=== PATIENT | male | born 1965 | race Caucasian/White ===

== ENCOUNTER → 2023-02-13 | Outpatient (CLI) | payer BC ==
[2023-02-13 20:01] LABS: HCT 45.3 % (39.6-50.0); HGB 15.2 g/dL (13.0-17.0); MCH 31.9 pg (27.0-32.0); MCHC 33.6 g/dL (32.0-37.0); MCV 95.2 FL (80.0-97.0); Mean Platelet Volume 9.5 FL (9.5-12.2); NRBC Per 100 WBC 0 X 10*3/uL (0.00-0.01); Platelet Count 362 X 10*3/uL (140-440); RBC 4.76 X 10*6/uL (4.40-5.60); RDW 13.4 % (11.5-14.5); WBC 6.64 X 10*3/uL (4.50-10.00)
[2023-02-14 01:57] LABS: ALT 28 U/L (10-49); AST 19 U/L (14-35); Albumin 4.5 g/dL (3.8-4.9); Albumin/Globulin Ratio 1.73 Ratio (1.60-3.17); Alkaline Phosphatase 72 U/L (41-126); BUN/Creat Ratio 23.62 Ratio (12.00-20.00); Blood Urea Nitrogen 18.9 mg/dL (9.0-27.0); Calcium 10.2 mg/dL (8.7-10.3); Carbon Dioxide 25.9 mmol/L (21.6-31.8); Chloride 104 mmol/L (96-109); Globulin 2.6 g/dL (1.6-3.3); Glucose 94 mg/dL (70-110); Sodium 140 mmol/L (135-145); Total Bilirubin 0.5 mg/dL (0.3-1.2); Total Protein 7.1 g/dL (6.2-8.2)
== END | disposition home or self-care (01) ==
LOC: LABWHC1 13:54
PROVIDERS: ATTEND Surgery Plastic and Reconstructive Surgery
DX: Z01.89 Encounter for other specified special examinations (principal)
CPT/HCPCS: 36415; 80053; 85027; 93005

== ENCOUNTER 2023-03-28 08:16 | Day surgery (SDC) | payer BC ==
[2023-03-27 11:14] VITALS: BMI 31.0
[~2023-03-28 08:16] MED LIST: ACETAMINOPHEN TAB 500 MG TAB PO PRN; DEXAMETHASONE SOD PHOSPHATE 4 MG/ML 1 ML VIAL IV ONE; HEPARIN SODIUM,PORCINE 5,000 UNIT/ML 1 ML VIAL SQ PRN; HYDROmorphone 0.5 MG/0.5 ML SYRINGE IVP PRN; LACTATED RINGERS 1,000 ML IV SCH; LIDOCAINE 1% (10MG/ML) FOR IV START INTRADERMA PRN; MELOXICAM 7.5 MG TAB PO PRN; ONDANSETRON 4 MG/2 ML VIAL IVP PRN; SCOPOLAMINE 1 MG/72 HR PATCH TRANSDERM ONE; droPERidol 5 MG/2 ML VIAL IVP ONE
[2023-03-28] MEDS ORDERED: TAMSULOSIN 0.4 MG CAP.ER.24H PO STA (08:21)
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
[2023-03-28] MEDS ORDERED: MIDAZOLAM 2 MG/2 ML VIAL IVP ONE (09:22)
--- NOTE | 2023-03-28 09:38 | P.ANPRN ---
Procedure Note - Anesthesia - Nerve Block Performed Bilateral Erector Spinae Single Time Out Performed: Yes Date of Procedure: 03/28/23 Procedure Start Time: Procedure Stop Time: Location of Patient: PreOp Indication: Acute Post-Operative Pain, Requested by Surgeon Sedation Type: Sedate with meaningful contact maintained Preparation: Sterile Prep, Sterile Dressing Position: Prone Catheter: None Needle Types: Facet Needle Gauge: 20 Ultrasound used to visualize needle placement: Yes Ultrasound used to observe medication spread: Yes Injectate: Other (see comment) (Ropivacaine 0.25% + decadron 2 mg 30 ml per side) Blood Aspirated: No Pain Paresthesia on Injection Noted: No Resistance on Injection: Normal Image Stored and Saved: Yes Events: Uneventful and Well Tolerated
[2023-03-28 09:41] LABS: Basophils # (A) 0.1 k/uL (0-0.2); Basophils % (A) 1 %; Eosinophils # (A) 0.2 k/uL (0-0.7); Eosinophils % (A) 2 %; HCT 45.7 % (39.0-53.0); HGB 15.7 gm/dL (13.0-17.5); Lymphocytes # (A) 2.2 k/uL (1.0-4.8); Lymphocytes % (A) 22 %; MCH 33.1 pg (25.0-35.0); MCHC 34.5 g/dL (31.0-37.0); MCV 95.8 fL (80.0-100.0); Mean Platelet Volume 7.3; Monocytes # (A) 0.5 k/uL (0-1.0); Monocytes % (A) 5 %; Neutrophils # (A) 6.9 k/uL (1.3-7.7); Neutrophils % (A) 69 %; Platelet Count 362 k/uL (150-450); RBC 4.77 m/uL (4.30-5.90); RDW 12.9 % (11.5-15.5); WBC 9.9 k/uL (3.8-10.6)
[2023-03-28] MEDS ORDERED: SODIUM CHLORIDE 0.9% (PF) 10 ML VIAL ONE (10:03)
[2023-03-28] MEDS ORDERED: ROPIVACAINE 5 MG/ML 30 ML VIAL ONE (10:03)
[2023-03-28] MEDS ORDERED: DEXAMETHASONE SOD PHOSPHATE 4 MG/ML 1 ML VIAL ONE (10:03)
[2023-03-28] MEDS ORDERED: LIDOCAINE 1% INJ 10MG/ML (20 ML MDV) ONE (10:03)
[2023-03-28] MEDS ORDERED: MIDAZOLAM 2 MG/2 ML VIAL ONE (10:03)
[2023-03-28] MEDS ORDERED: PHENYLEPHRINE 10 MG/ML VIAL ONE (10:03)
[2023-03-28] MEDS ORDERED: PROPOFOL 10 MG/ML 20 ML VIAL IV ONE (10:03)
[2023-03-28] MEDS ORDERED: SUGAMMADEX SODIUM 200 MG/2 ML SDV IV ONE (10:03)
[2023-03-28] MEDS ORDERED: fentaNYL (PF) 50 MCG/ML 2 ML AMP ONE (10:03)
[2023-03-28] MEDS ORDERED: SUCCINYLCHOLINE CHLORIDE 200 MG/10 ML VIAL IV ONE (10:03)
[2023-03-28] MEDS ORDERED: ROCURONIUM 10 MG/ML (5 ML VIAL) IV ONE (10:03)
[2023-03-28] MEDS ORDERED: LIDOCAINE 0.5%-EPI 1:200,000 50 ML VIAL SQ ONE (10:08)
[2023-03-28] MEDS ORDERED: LACTATED RINGERS 1,000 ML IV ONE ×2 (11:12→13:37)
--- NOTE | 2023-03-28 12:27 | P.OP ---
Date of Procedure: 03/28/23 Description of Procedure: SURGEON: MINNA LOZA MD PREOPERATIVE DIAGNOSES: 1. Initial epigastric ventral hernia with incarceration 2. Initial incarcerated left inguinal hernia 3. Obesity due to excess calories, BMI 31.2 4. History of paralyzed diaphragm POSTOPERATIVE DIAGNOSES: 1. Initial epigastric ventral hernia with incarceration, 3 cm 2. Initial incarcerated left inguinal hernia, 3 cm 3. Obesity due to excess calories, BMI 31.2 4. History of paralyzed diaphragm 5. Left inguinal lipoma, 6 x 3 cm OPERATION: 1. Robotic-assisted da Sergey Xi laparoscopic repair of initial incarcerated umbilical ventral hernia with mesh, ventralight ST mesh 11.4 cm 2. Robotic-assisted da Sergey Xi laparoscopic repair of initial incarcerated left inguinal hernia, ventralight ST mesh 11.4 cm 3. Excision of left inguinal lipoma, subfascial, 6 x 3 cm Anesthesia: GETA, regional, local Estimated Blood Loss (ml): 5 Pathology: 1. Incarcerated umbilical hernia defect 2. Incarcerated left inguinal lipoma COMPLICATIONS: None. Operative Findings: 1. Incarcerated indirect left inguinal lipoma involving sigmoid colon, Nyhus II 2. Umbilical hernia defect 3 x 3 cm 3. Fascia repaired using #1 V-lock suture 4. Subfascial left inguinal lipoma, 6 x 3 cm INDICATIONS: The patient is a 57-year-old male who presents with multiple abdominal wall hernias. Surgical intervention with laparoscopic versus robotic and open techniques were reviewed. Placement of mesh was also reviewed. Benefits and risks were thoroughly described. Informed consent was obtained. DESCRIPTION OF PROCEDURE: The patient was brought into the operating room and laid in supine position. After general induction, the abdomen had been prepped and draped in standard sterile fashion. Ioban draping was also placed. Prior to incision, a timeout protocol was confirmed with surgical team regarding the patient's name including procedures to be performed. The robot was primed prior to the procedure. A field block using local anesthetic was placed along hernia site including the proposed port sites. Initial incision was made with an #11 blade along the left upper quadrant. A 0 degree 5 mm laparoscopic trocar entry was performed and insufflated. Three 8 mm ports were placed along the left lateral abdominal wall under direct localization after exchanging the 5-mm for an 8 mm port. Placements of the ports were 15 cm from the target anatomy and 10 cm apart. An accessory 12 mm port was placed at the left lateral quadrant for exchange of mesh including sutures. The [employer] Xi robot was previously primed, prepped and draped then docked from the right side of the patient onto the left side of the patient. I then sat at the robot [employer] console where working arms of the robot including Bovie cautery connected to robotic scissors, needle route sales delivery driver, and graspers placed by the cafe assistant. Incarcerated omental contents were found along the umbilicus. The sigmoid colon and epiploica were incarcerated along the left inguinal canal. The defects were reduced with preperitoneal fat. Umbilical hernia defect 3 x 3 cm. The incarcerated contents were reduced as the peritoneal fat was cleaned from the abdominal wall. Next, hemostasis was checked with cautery. The hernia defects were oversewn using #1 nonabsorbable V-lock suture with fascial imbrication x 2. Next, ventralight ST mesh 11.4 cm was placed with the rough side towards the abdominal wall as to cover the umbilical defect. 2-0 VLOC 9 inch absorbable sutures were used to fixate the mesh. The left indirect inguinal hernia with incarcerated epiploic of the sigmoid colon was found. The left inguinal hernia defect was probed where large 6 x 3 centimeters subfascial lipoma was excised after reduction of sigmoid colon. The contents was evaginated whereby the peritoneum was scored using Endo scissors with cautery. Once completely reduced into the abdominal cavity, the peritoneal sac of the hernia was stripped. The sac with subfascial lipoma was resected and then passed off for further pathological analysis. The size of the hernia defect was 3 cm with intraoperative films obtained. An inguinal lipoma, subfascial 6 x 3 cm was resected. Using a nonabsorbable 2-0 VLOC, the peritoneal defect of the left inguinal hernia site was closed using a pursestring suture. The defect was found to be completely closed with complete reduction of the left direct inguinal hernia. As an onlay, an 11.[address] mesh by Crew was cut in half and entered into the abdominal cavity via the 8 mm trocar. The mesh was tacked to the pelvis using nonabsorbable 2-0 VLOC sutures. A final endoscopic imaging was obtained. All instruments and pneumoperitoneum were evacuated from the abdominal cavity. The da Sergey Xi robot was undocked from the patient. I re-scrubbed into the case for closure of incisions. The fascia of the 12-mm port was probed and an closed using Onur Webb and 0 Vicryl. The incisions were reapproximated using 4-0 Monocryl in an interrupted subcuticular fashion. Liquid glue was applied to the skin after cleansing the skin with normal saline and dilute hydrogen peroxide. An abdominal binder was placed. An umbilical dressing was placed prior. At the end of the procedure, needle, sponge, and instrument count had been verified correct by director medical surgical. The patient was taken to the postanesthesia care unit in stable condition. Plan - Discharge Summary Discharge Rx Participant: Yes New Discharge Prescriptions: New Acetaminophen Tab [Tylenol Tab] 1,000 mg PO Q6HR PRN #30 tablet PRN Reason: Pain Cyclobenzaprine [Flexeril] 10 mg PO TID #30 tab Ibuprofen [Motrin] 600 mg PO Q8HR PRN #30 tab PRN Reason: Pain Continue Multivitamins, Thera [Multivitamin (formulary)] 1 tab PO DAILY Calcium Carb/Mag Ox/Zinc Sulf [Ghn-Agg-Ssyc 334-134-5 mg Tab] 1 each PO DAILY Cholecalciferol [Vitamin D3 (25 Mcg = 1000 Iu)] 25 mcg PO DAILY Ascorbic Acid [Vitamin C] 500 mg PO DAILY Discharge Medication List Ascorbic Acid [Vitamin C] 500 mg PO DAILY 03/27/23 [History] Calcium Carb/Mag Ox/Zinc Sulf [Mmq-Hqi-Crwf 334-134-5 mg Tab] 1 each PO DAILY 03/27/23 [History] Cholecalciferol [Vitamin D3 (25 Mcg = 1000 Iu)] 25 mcg PO DAILY 03/27/23 [History] Multivitamins, Thera [Multivitamin (formulary)] 1 tab PO DAILY 03/27/23 [History] Acetaminophen Tab [Tylenol Tab] 1,000 mg PO Q6HR PRN #30 tablet 03/28/23 [Rx] Cyclobenzaprine [Flexeril] 10 mg PO TID #30 tab 03/28/23 [Rx] Ibuprofen [Motrin] 600 mg PO Q8HR PRN #30 tab 03/28/23 [Rx] Follow up Appointment(s)/Referral(s): Minna Loza MD [STAFF PHYSICIAN] - 04/02/23 1:45 pm Patient Instructions/Handouts: Laparoscopic Herniorrhaphy (IP), Abdominal Binder (DC), Inguinal Hernia Repair (GEN) Activity/Diet/Wound Care/Special Instructions: DO NOT REMOVE UMBILICAL DRESSING. Using antibacterial soap. No lifting over 4 pounds 4 weeks, Apr 28August shower. No bathtub soaks for 2 weeks, Apr 11 Wear abdominal binder daily for comfort except for showering. Use ice along incisions for today to prevent swelling. Take tylenol, aleve/ibuprofen, simethicone scheduled for 3 days for best pain relief Discharge Disposition: HOME SELF-CARE
[2023-03-28] MEDS ORDERED: ALBUTEROL NEBULIZED 2.5 MG/3 ML INHALATION ONE (12:35)
[2023-03-28 12:38] VITALS: TEMP 97.9
[2023-03-28] MEDS ORDERED: HYDROmorphone 0.5 MG/0.5 ML SYRINGE IVP ONE (12:45)
[2023-03-28 13:52] VITALS: RESP 16
[2023-03-28 15:08] VITALS: BP 95/55; PULSE 81
== END 2023-03-28 15:32 | disposition home or self-care (01) ==
LOC: OR 08:16
PROVIDERS: ATTEND Surgery Plastic and Reconstructive Surgery
DX: K42.9 Umbilical hernia without obstruction or gangrene (principal); K43.6 Other and unspecified ventral hernia with obstruction, without gangrene; K40.30 Unilateral inguinal hernia, with obstruction, without gangrene, not specified as recurrent; D17.79 Benign lipomatous neoplasm of other sites; J98.6 Disorders of diaphragm; G89.18 Other acute postprocedural pain; E66.09 Other obesity due to excess calories; Z68.31 Body mass index [BMI] 31.0-31.9, adult; F10.90 Alcohol use, unspecified, uncomplicated; Z79.899 Other long term (current) drug therapy; Z98.890 Other specified postprocedural states
CPT/HCPCS: 49596; 49650; S2900; 64999; 85025; 88302; 88304